=== PATIENT | female | born 1955 | race Caucasian/White ===

== ENCOUNTER 2021-03-29 09:10 | Inpatient (IN) | payer OTHER ==
[~2021-03-29] VITALS: Ht 170.2 cm; Wt 61.2 kg
--- NOTE | 2021-03-29 09:28 | NUR ---
ASSUMED CARE OF PT FROM DINING SERVICE SUPERVISOR
[2021-03-29 09:36] VITALS: BP 107/42
[2021-03-29 10:26] LABS: ABSOLUTE NEUTROPHILS 2.6 thou/uL (1.4-8.2); BASOPHILS 0.5 % (0.0-2.0); EOSINOPHILS 3.3 % (0.0-3.0); HEMATOCRIT 36.2 % (37.0-47.0); HEMOGLOBIN 12.4 gm/dL (12.0-15.0); LYMPHOCYTES 20.4 % (24.0-44.0); MCH 32.8 pg (26.0-34.0); MCHC 34.4 g/dL (28.0-37.0); MCV 95.3 fL (80.0-100.0); MONOCYTES 5.7 % (1.0-8.0); PLATELET COUNT 294 thou/uL (150-400); POLYS 70.1 % (36.0-66.0); RDW 12.6 % (10.5-14.5); WBC 3.7 thou/uL (4.0-11.0)
[2021-03-29 10:36] LABS: ANION GAP 7 mmol/L (7-16); BUN 9 mg/dL (7-18); CALCIUM 8.5 mg/dL (8.5-10.1); CHLORIDE 99 mmol/L (98-107); CO2 27 mmol/L (21-32); CREATININE 0.8 mg/dL (0.6-1.0); GLUCOSE 106 mg/dL (74-106); POTASSIUM 4.2 mmol/L (3.5-5.1); SODIUM 133 mmol/L (136-145)
--- NOTE | 2021-03-29 10:46 | NUR ---
[facility] PER DR. LLOYD
[2021-03-29 10:49] LABS: ALBUMIN 3.6 g/dL (3.4-5.0); SGOT 17 U/L (15-37); SGPT 22 U/L (30-65); TOTAL BILIRUBIN 0.4 mg/dL (0.2-1.0); TOTAL PROTEIN 6.1 g/dL (6.4-8.2)
[2021-03-29] MEDS ORDERED: ZOFRAN ODT4 MG PO (11:57)
[2021-03-29] MEDS ORDERED: ANTACID325 MG PO (11:59)
[2021-03-29] MEDS ORDERED: CARBAMAZEPINE200 M6 PO (12:00)
[2021-03-29] MEDS ORDERED: KEPPRA 500 MG500 M1 PO (12:00)
[2021-03-29] MEDS ORDERED: ROSUVASTATIN CA10 MG PO (12:01)
[2021-03-29] MEDS ORDERED: NEURONTIN 300M300 M2 PO (12:01)
[2021-03-29] MEDS ORDERED: VITAMIN B-6100 MG PO (12:02)
[2021-03-29] MEDS ORDERED: ONE-A-DAY WOMENS PO (12:03)
[2021-03-29] MEDS ORDERED: HAIR-SKIN-NAIL1 EACH PO (12:03)
[2021-03-29 12:09] LABS: URINE BILIRUBIN NEGATIVE (Negative); URINE BLOOD NEGATIVE (Negative); URINE CLARITY CLEAR; URINE COLOR YELLOW; URINE GLUCOSE-RANDOM* NEGATIVE (Negative); URINE KETONES NEGATIVE (Negative); URINE LEUKOCYTES-REFLEX NEGATIVE (Negative); URINE NITRITE-REFLEX NEGATIVE (Negative); URINE PROTEIN (DIPSTICK) NEGATIVE (Negative); URINE UROBILINOGEN 0.2 E.U./dl (0.2-1.0)
[2021-03-29 12:20] LABS: AMP/METHAMP Negative (Negative); BARBITURATES Negative (Negative); BENZODIAZEPINES Negative (Negative); COCAINE Negative (Negative); METHADONE Negative (Negative); OPIATES Negative (Negative); PCP Negative (Negative)
--- NOTE | 2021-03-29 15:35 | EKG ---
[address] [address] ELECTROCARDIOGRAM REPORT Name: JAZMINE COOK Room #: 170-6 ADM IN .R.#: [id number] Admission: 03/29/21 Attend Phys: Noah Yung MD Discharge: Date of : 51 Report #: [id number] [facility] ED Test Date: 2021-03-29 Test Time: 09:33:45 Pat Name: JAZMINE COOK Department: Room: 170 Gender: F Talk Show Host: leonela : 1955 Requested By: Branden Yun Order Number: [id number] MD: Trevin Perez Measurements Intervals Brandon Rate: 57 P: 54 WA: 172 QRS: 51 QRSD: 96 T: 54 QT: 476 QTc: 464 Interpretive Statements Sinus rhythm No previous ECG available for comparison Electronically Signed On 03-29-2021 15:34:46 CDT by Trevin Perez [email or web address] <ELECTRONICALLY SIGNED> By: Trevin Perez MD, [facility] 03/29/21 1534 0933 Trevin Perez MD, FACC /EPI
[2021-03-29 17:27] VITALS: BP 117/51
[2021-03-29 17:53] LABS: APTT 26.3 Seconds (24.5-32.8); PROTIME 10.9 Seconds (10.5-12.1)
[2021-03-29 19:42] VITALS: BP 110/45
[2021-03-30 04:33] LABS: HEMOGLOBIN 12.1 gm/dL (12.0-15.0); MCHC 34.5 g/dL (28.0-37.0); MCV 95.6 fL (80.0-100.0); RBC 3.66 mil/uL (4.20-5.00); RDW 12.7 % (10.5-14.5); WBC 3.6 thou/uL (4.0-11.0)
[2021-03-30 04:35] LABS: CALCIUM 8.4 mg/dL (8.5-10.1); CREATININE 0.7 mg/dL (0.6-1.0); POTASSIUM 4.3 mmol/L (3.5-5.1)
--- NOTE | 2021-03-30 05:02 | NUR ---
PT CARE ASSUMED WITH PT IN BED WATCHING TV.PT IS A/O X4.PT IS UP WITH X1 ASSIST TO THE BATHROOM WITH WALKER AND REFUSE GAIT BELT USE.IV ACCESS ON LT AC WITH NS AT 75CC/HR.PT DENIED ANY PAIN N/V/D.PT IS ON ROOM AIR.WILL CONTINUE TO MONITOR PER POC
[2021-03-30 07:18] VITALS: BP 102/49
[2021-03-30 11:48] VITALS: BP 98/47
--- NOTE | 2021-03-30 13:27 | NUR ---
PT ADMITTED RELATED TO SYNCOPAL EPISODE. CM REVIEWED CHART AND SPOKE WITH CARE TEAM. CM MET WITH PT AT BEDSIDE THIS DAY. PT APPEARED TO BE A&O X4. CM ROLE INTRODUCED. PT INDICATED SHE RESIDES IN A HOUSE WITH HER SPOUSE WITH 3 STEPS TO ENTER THROUGH THE FRONT AND THREE THROUGH THE GARAGE. PT INDICATED 14 STEPS TO BASEMENT BUT THAT SHE HAS ALL NEEDS ON 1 LEVEL. PT INDICATED SHE HAD BEEN INDEPENDANT WITH GAIT AND ADLS IT RISK ADVISOR. PT INDICATED SPOUSE AND TWO SONS ARE GOOD CONTACTS FOR HER. PT INDICATED SHE PLANS TO RETURN HOME ONCE MEDICALLY STABLE. PT DOESN'T ANTICIPATE ANY NEEDS UPON DC. NEURO TO SEE CARE TEAM INDICATED DC FRI OR SAT DEPENDEING ON PLAN OF CARE.
[2021-03-30] MEDS ORDERED: KEPPRA 500 MG500 MG PO (15:41)
[2021-03-30 15:47] VITALS: BP 98/47
[2021-03-30 15:52] VITALS: BP 96/53
--- NOTE | 2021-03-30 16:50 | NUR ---
Assumed pt care this am vs table was able to work with PT and OT and was signed off to be up ad ricco. POC followed with no signs or verbalizations of distress noted. DC instructions given to the pt and the . IV removed, pt is now dc.
--- NOTE | 2021-03-31 15:26 | HC ---
[facility] [place] [id number] CONSULTATION Name: JAZMINE COOK Room #: 451-P [facility] IN ..#: [id number] Admission: 03/29/21 Attend Phys: Noah Yung MD Discharge: 03/30/21 Date of : 51 Report #: [id number] THIS REPORT FOR: cc: Pari Riley MD, Cassandra MD [place], Roxane S. DO ~ NEUROLOGY CONSULTATION HISTORY OF PRESENT ILLNESS: The patient is a 65-year-old female who tells me that in 2017, she was diagnosed with a benign brain tumor. Apparently, when she went to see the stippler something was noticed on her eye exam and an MRI of the head was ordered. The patient eventually found herself at [facility] and had surgery performed by Dr. Toribio Huntley. Since that time, the patient has been on a combination of carbamazepine and levetiracetam. She states she has had only one seizure in the past that would have been on 06/24/2017. The patient tells me that yesterday, she had gone down to prepare grits and the next thing she knew the ambulance was in her home. I had the opportunity to speak to her and he told me that he heard her call out his name and when she got to her, she was slumped over the bar and somnolent. She eventually slipped down to the floor and still he could not wake her. The patient was brought to the hospital. She had a CT scan of the head, which shows extensive left cerebral hemispheric and left calvarial and orbital surgical changes. No acute process is seen. The patient also had a CT angiogram and this was essentially unremarkable as well with the exception of operative changes noted in the left frontal region, anterior temporal region and left lateral sphenoid sinus. The patient is on a combination of carbamazepine and levetiracetam. She also has gabapentin, which Dr. Huntley told her to take as needed for pain. PAST MEDICAL HISTORY: Resection of a benign intracranial tumor, seizure disorder, hyperlipidemia. PAST SURGICAL HISTORY: As noted above. MEDICATIONS: Carbamazepine 200 mg b.i.d., levetiracetam 500 mg b.i.d., rosuvastatin 10 mg daily, gabapentin 1200 mg at bedtime as needed for pain, ondansetron 4 mg as needed for nausea, sodium bicarbonate as needed for indigestion, B6 100 mg daily, multivitamin daily. ALLERGIES: PENICILLIN AND SULFA. [address] [address] CONSULTATION Name: JAZMINE COOK Room #: 451-P [facility]#: [id number] Admission: 03/29/21 Attend Phys: Noah Yung MD Discharge: 03/30/21 Date of : 51 Report #: [id number] VITAL SIGNS: Temperature 37.2, pulse rate 70, respiratory rate 22, blood pressure 98/47, bedside pulse oximetry 98% on room air. LABORATORY DATA: Hematology: White blood cell count 3.6, hemoglobin 12.1, hematocrit 35, MCV 95.6, platelet count 305,000. INR 1. Urinalysis negative. Chemistry: Sodium 141, potassium 4.3, chloride 105, carbon dioxide 27, BUN 9, creatinine 0.7, GFR 83, glucose 74, calcium 8.4, total bilirubin 0.4, AST 17, ALT 22, alkaline phosphatase 46. Drug screen negative. COVID negative. IMAGING STUDIES: As reported above. NEUROLOGIC: Cranial nerves II-XII are grossly intact with the exception of a mild right facial droop. The patient has normal and symmetrical strength in the upper and lower extremities. Reflexes are trace throughout. Plantar responses are flexor bilaterally. Coordination reveals intact [id number]. IMPRESSION AND PLAN: This patient may have been postictal when she was found by her . If this had been a syncopal episode, I would have thought she would have been more easily arousable. Certainly, the patient has a reason for having seizures with the right frontal and temporal lobe resection. The patient is on carbamazepine 200 mg b.i.d. I am not going to increase this dose. There is no level and she also has a low white blood cell count, which is most likely secondary to carbamazepine. Therefore, the dose of levetiracetam will be increased from 500 mg b.i.d. to 750 mg b.i.d. The patient should follow up either with her neurosurgeon or with a neurologist as an outpatient. I thank you for your kind referral of the patient. <ELECTRONICALLY SIGNED> By: Shalonda Uribe DO 03/31/21 1526 [id number] Shalonda Uribe DO /nt
== END 2021-03-30 17:00 | disposition home or self-care (01) | DRG 100 ==
LOC: ER 09:10 → 4W 14:31 → EROBS 14:31 → 4W 18:10
PROVIDERS: Emergency Medicine; ADMIT Hospitalist; ATTEND Hospitalist
DX: G40.909 Epilepsy, unspecified, not intractable, without status epilepticus (principal); G93.41 Metabolic encephalopathy; E78.5 Hyperlipidemia, unspecified; Z86.011 Personal history of benign neoplasm of the brain; Z88.0 Allergy status to penicillin; Z88.2 Allergy status to sulfonamides; Z23 Encounter for immunization
CPT/HCPCS: 10045